=== PATIENT | female | born 1950 | race Caucasian/White ===

== ENCOUNTER 2019-09-23 11:39 | Outpatient (CLI) | payer MEDICARE, OTHER, SELFPAY ==
--- NOTE | 2019-09-23 11:50 | XR_ITS ---
WS: [id number] LUMBAR SPINE FLEXION AND EXTENSION TECHNIQUE: 3 views of the lumbar spine: Lateral neutral, flexion, and extension views. CLINICAL INFORMATION: LOW BACK PAIN COMPARISON: None. FINDINGS: Mild lumbar curve. No instability on the flexion and extension views. Disc space narrowing throughout the lumbar spine w ith vacuum disc phenomenon L3-L4 and L4-L5. Moderate facet arthropathy L5-S1 with bony foraminal narr owing. Aortic calcification. Chronic anterior wedging lower thoracic spine. XR/XR lumbar spine f/e only [id number] IMPRESSION: No instability on flexion-extension.
== END 2019-09-23 11:40 | disposition home or self-care (01) ==
LOC: RADWPI 11:48
PROVIDERS: Family Provider Family Medicine; PCP Family Medicine; Visit Provider Nurse Practitioner
DX: M54.5 Low back pain (principal)
CPT/HCPCS: 72120